=== PATIENT | female | born 1995 | race Two or more races ===

== ENCOUNTER → 2017-10-10 | Emergency (ER) | payer OTHER ==
--- NOTE | 2017-10-10 18:28 | Emergency Room Report ---
History of Present Illness General Chief Complaint: To Be Triaged Medical Decision Making Diagnostic Impression: Primary Impression: Patient left without being seen ER Course Patient left without being seen Status: unchanged Disposition: LEFT W/OUT BEING SEEN Condition: Unknown Referrals: [facility],REFERRING (PCP) Leroy Olson MD October 10, 2017 18:28
== END | disposition left against medical advice (07) ==
LOC: EMR 16:46
DX: J00 Acute nasopharyngitis [common cold] (principal); Z53.21 Procedure and treatment not carried out due to patient leaving prior to being seen by health care provider

== ENCOUNTER 2018-05-12 05:50 | Emergency (ER) | payer OTHER ==
[~2018-05-12] VITALS: Ht 162.6 cm; Wt 63.0 kg
[2018-05-12] MEDS ORDERED: NKM (06:00)
[2018-05-12 06:10] VITALS: BP 124/73
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
[2018-05-12] MEDS ORDERED: METRONIDAZOLE500 MG ORAL (06:29)
[2018-05-12] MEDS ORDERED: MONISTAT 744 GM VG (06:29)
[2018-05-12] MEDS ORDERED: FLUCONAZOLE150 MG ORAL (06:29)
[2018-05-12 06:35] VITALS: BP 124/73
== END 2018-05-12 06:38 | disposition home or self-care (01) ==
LOC: EMR 06:22
DX: N76.0 Acute vaginitis (principal)
CPT/HCPCS: 99282

== ENCOUNTER 2018-10-12 06:14 | Emergency (ER) | payer OTHER ==
[~2018-10-12] VITALS: Ht 162.6 cm; Wt 62.1 kg
[~2018-10-12 06:14] MED LIST: FLUCONAZOLE150 MG ORAL; METRONIDAZOLE500 MG ORAL; MONISTAT 744 GM VG; NKM
[2018-10-12 06:54] VITALS: BP 127/79
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
[2018-10-12 07:42] LABS: APPEARANCE,URINE CLEAR; BILIRUBIN, URINE NEGATIVE (NEGATIVE); GLUCOSE, URINE (UA) NEGATIVE (NEGATIVE); KETONES,URINE 1+ (NEGATIVE); LEUKOCYTE ESTERASE ,URINE 2+ (NEGATIVE); NITRITE,URINE NEGATIVE (NEGATIVE); PH,URINE 5 (4.5-8.0); PROTEIN,URINE 2+ (NEGATIVE); UROBILINOGEN,URINE 1 MG/DL (0.0-1.0)
[2018-10-12 07:49] LABS: COLOR,URINE YELLOW
[2018-10-12] MEDS ORDERED: Lidocaine 1% MPF 10mg/ml 5ml INJ ONE (08:00)
[2018-10-12] MEDS ORDERED: Azithromycin 250mg tab ORAL ONE (08:00)
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
[2018-10-12] MEDS ORDERED: IBUPROFEN600 MG ORAL (08:30)
[2018-10-12] MEDS ORDERED: NITROFURANTOIN100 M2 ORAL (08:30)
[2018-10-12 08:36] VITALS: BP 124/78
--- NOTE | 2018-10-12 08:44 | NUR ---
ER DISCHARGE NOTE:pt. recevieved antibiotics treatment Patient is cleared to be discharged per ERMD, pt is aox4, on room air, with stable vital signs. pt was given dc and prescription instructions, pt was able to verbalize understanding, pt is able to ambulate with steady gait. pt took all belongings.
== END 2018-10-12 08:36 | disposition home or self-care (01) ==
LOC: EMR 07:09
DX: J02.9 Acute pharyngitis, unspecified (principal); N39.0 Urinary tract infection, site not specified
CPT/HCPCS: 81001; 81025; 96372; 96374; 99284; J0696; Q0144

== ENCOUNTER 2018-10-22 13:58 | Emergency (ER) | payer OTHER ==
[~2018-10-22] VITALS: Ht 162.6 cm; Wt 59.9 kg
[~2018-10-22 13:58] MED LIST changes: +IBUPROFEN600 MG ORAL; +NITROFURANTOIN100 M2 ORAL
[2018-10-22 14:21] VITALS: BP 127/77
--- NOTE | 2018-10-22 14:24 | NUR ---
ED Nurse Note: pt came in for cough and congestion for 1 week awaiting ermd eval .
--- NOTE | 2018-10-22 14:54 | Emergency Room Report ---
History of Present Illness General Chief Complaint: Upper Respiratory Illness Present Illness HPI 23 YO Female presents to the ED c/o 11/13 in severity painful cough with mucus stuck in throat x 1 week. Denies fevers or chills. Denies sore throat, ear pain , high fevers, lethargy, neck pain/stiffness, irritability, photophobia dehydration, N/V/D. Denies Cp, Palpitations, LOC, AMS, seizures, paresthesias, or changes in Hearing or vision, no Sudden severe PLEITEZ. Denies hx of smoking, asthma or COPD. Allergies: Coded Allergies: No Known Allergies (Unverified , 05/12/18) Patient History Past Medical History: see triage record Past Surgical History: none Pertinent Family History: none Last Menstrual Period: 5-3 Now: No Reviewed Nursing Documentation: PMH: Agreed; PSxH: Agreed Nursing Documentation-PMH Past Medical History: No Stated History Review of Systems All Other Systems: negative except mentioned in HPI Physical Exam Vital Signs Date Time Temp Pulse Resp B/P (MAP) Pulse Ox O2 Delivery O2 Flow Rate FiO2 10/22/18 14:12 98.6 91 20 97 Room Air 10/22/18 14:21 127/77 Sp02 EP Interpretation: reviewed, normal General Appearance: no apparent distress, alert, GCS 15, non-toxic Head: normocephalic, atraumatic Eyes: bilateral eye normal inspection, bilateral eye PERRL ENT: hearing grossly normal, normal voice, TMs + canals normal, uvula midline, moist mucus membranes, nasal congestion, pharyngeal erythema Neck: full range of motion Respiratory: chest non-tender, lungs clear, normal breath sounds, no respiratory distress, no accessory muscle use, speaking full sentences, wheezing Cardiovascular #1: regular rate, rhythm Gastrointestinal: non tender, soft Musculoskeletal: gait/station normal, normal range of motion, non-tender Neurologic: alert, oriented x3, responsive, motor strength/tone normal, sensory intact, speech normal, grossly normal Psychiatric: judgement/insight normal Skin: normal color, no rash, warm/dry, well hydrated Lymphatic: no adenopathy Medical Decision Making PA Attestation Dr. lee is my supervising Physician whom patient management has been discussed with. Diagnostic Impression: Primary Impression: Bronchitis ER Course 23 YO Female presents to the ED c/o 11/13 in severity painful cough with mucus stuck in throat x 1 week. Denies fevers or chills. Denies sore throat, ear pain , high fevers, lethargy, neck pain/stiffness, irritability, photophobia dehydration, N/V/D. Denies Cp, Palpitations, LOC, AMS, seizures, paresthesias, or changes in Hearing or vision, no Sudden severe PLEITEZ. Denies hx of smoking, asthma or COPD. Ddx considered but are not limited to URI, pneumonia, PE, strep pharyngitis, meningitis. Vital signs: Pt. is afebrile, the remaining VS are WNL H&PE are most consistent with bronchitis URI- no meningeal signs, oropharynx is not involved, no evidence of bacterial infection at this time. ORDERS: none required at this time, the diagnosis is clinical ED INTERVENTIONS: None required at this time. --PT. EDUCATION: Discussed antibiotic resistance with inappropriate prescribing of antibiotics for viral illnesses. Discussed signs and symptoms to indicate viral illness versus bacterial illness. DISCHARGE: At this time pt. is stable for d/c to home. Will provide printed patient care instructions, and any necessary prescriptions. Care plan and follow up instructions have been discussed with the patient prior to discharge. Last Vital Signs Date Time Temp Pulse Resp B/P (MAP) Pulse Ox O2 Delivery O2 Flow Rate FiO2 10/22/18 14:21 98.6 20 127/77 97 Room Air 10/22/18 14:21 91 Disposition: HOME, SELF-CARE Condition: Stable Scripts Albuterol Sulfate* (ALBUTEROL SULFATE MDI*) 8.5 Gm Hfa.aer.ad 2 PUFF INH Q4H, #1 INH 0 Refills Prov: Kavya Oswald 10/22/18 Guaifenesin (Guaifenesin) 1,200 Mg Tab.er.12h 1200 MG PO Q12HR for 10 Days, #20 TAB Prov: Kavya Oswald 10/22/18 Codeine/Promethazine Hcl* (PROMETHAZINE-CODEINE SYRUP*) 118 Ml Syrup 5 ML ORAL Q6H PRN for For Cough, #120 ML 0 Refills Prov: Kavya Oswald 10/22/18 Departure Forms: Return to Work Return to Work Date: October 24, 2018 Work Restrictions: None Return to Full Activity: October 24, 2018 Patient Instructions: Acute Bronchitis, [id number] Additional Instructions: Take medications as directed. Follow up with a Primary Care Provider in 3-5 days, even if your symptoms have resolved. --Please review list of primary care clinics, if you do not already have a primary care provider Return sooner to ED if new symptoms occur, or current symptoms become worse. Do not drink alcohol, drive, or operate heavy machinery while taking Cough Syrup as this may cause drowsiness. - Please note that this Emergency Department Report was dictated using Amimonemergency management director technology software, occasionally this can lead to erroneous entry secondary to interpretation by the dictation equipment. Kavya Oswald October 22, 2018 14:54
[2018-10-22] MEDS ORDERED: ALBUTEROL SULF8.5 GM INH (14:55)
[2018-10-22] MEDS ORDERED: GUAIFENESIN1200 MG PO (14:55)
[2018-10-22] MEDS ORDERED: PROMETHAZINE-C118 M1 ORAL (14:55)
[2018-10-22 15:06] VITALS: BP 127/77
--- NOTE | 2018-10-22 15:06 | NUR ---
ER DISCHARGE NOTE: Patient is cleared to be discharged per BEEB ARMAS, pt is aox4, on room air, with stable vital signs. pt was given dc and prescription instructions, pt was able to verbalize understanding, pt id band removed without complications. pt is able to ambulate with steady gait. pt took all belongings.
== END 2018-10-22 15:56 | disposition home or self-care (01) ==
LOC: EMR 14:45
DX: J20.9 Acute bronchitis, unspecified (principal)
CPT/HCPCS: 99282

== ENCOUNTER 2019-07-21 10:29 | Emergency (ER) | payer OTHER ==
[~2019-07-21] VITALS: Ht 162.6 cm; Wt 62.6 kg
[~2019-07-21 10:29] MED LIST changes: +ALBUTEROL SULF8.5 GM INH; +GUAIFENESIN1200 MG PO; +PROMETHAZINE-C118 M1 ORAL
--- NOTE | 2019-07-21 10:37 | NUR ---
ED Nurse Note: Pt walked into ED w/ c/o sore throat for 1 day. Pt has no cough, congestion, nausea, or vomiting. Pt is alert and orientedx4, ambulatory. Pt Pt has and son present. Pt lungs are clear bilaterally to auscultation.
[2019-07-21 10:41] VITALS: BP 115/74
--- NOTE | 2019-07-21 10:55 | Emergency Room Report ---
History of Present Illness General Chief Complaint: Sore Throat Source: Patient Present Illness HPI Patient started getting sick today. Her child has strep throat. She has a sore throat. She denies any fevers or chills. No fevers, chills, chest pain, palpitations, nausea, vomiting, diarrhea, dysuria , abdominal pain, shortness of breath, joint pain, rashes, headache. Last menstrual period was normal. She is certain she is now at this time. Allergies: Coded Allergies: No Known Allergies (Unverified , 05/12/18) Patient History Past Medical History: see triage record Social History: Denies: smoking Social History Narrative Cares for her child Reviewed Nursing Documentation: PMH: Agreed; PSxH: Agreed Nursing Documentation-PMH Past Medical History: No Stated History Review of Systems All Other Systems: negative except mentioned in HPI Physical Exam Vital Signs Date Time Temp Pulse Resp B/P (MAP) Pulse Ox O2 Delivery O2 Flow Rate FiO2 07/21/19 10:31 98.1 69 18 109/68 (82) 99 Room Air Sp02 EP Interpretation: reviewed, normal General Appearance: well appearing, no apparent distress, GCS 15, non-toxic Head: normocephalic Eyes: bilateral eye normal inspection, bilateral eye PERRL ENT: moist mucus membranes, pharyngeal erythema Neck: full range of motion, supple Respiratory: chest non-tender, lungs clear Cardiovascular #1: regular rate, rhythm Gastrointestinal: normal inspection Musculoskeletal: gait/station normal Neurologic: alert, grossly normal Psychiatric: mood/affect normal Skin: no rash, warm/dry Medical Decision Making Diagnostic Impression: Primary Impression: Strep throat ER Course Mother of a child with strep throat presents with sore throat that began this morning. Differential includes viral pharyngitis versus strep pharyngitis. The fact that the child has strep makes her likely to have strep also. Antibiotics are indicated. Amoxicillin initially ordered. When presented with this patient states she gets itching with amoxicillin. This was changed to azithromycin. Patient not toxic and declining pain medication. Tolerating oral intake without difficulty. Patient stable for outpatient observation and treatment. Last Vital Signs Date Time Temp Pulse Resp B/P (MAP) Pulse Ox O2 Delivery O2 Flow Rate FiO2 07/21/19 11:45 98.0 82 18 110/72 99 Room Air Status: improved Disposition: HOME, SELF-CARE Condition: Improved Scripts Azithromycin* (ZITHROMAX*) 250 Mg Tablet 250 MG ORAL DAILY, #4 TAB Prov: David Ibrahim MD 07/21/19 Ibuprofen* (MOTRIN*) 600 Mg Tablet 600 MG ORAL Q6HR for For Pain, #16 TAB 0 Refills Prov: David Ibrahim MD 07/21/19 David Ibrahim MD Jul 21, 2019 10:55
[2019-07-21] MEDS ORDERED: AMOXICILLIN500 MG ORAL ×2 (11:03)
[2019-07-21] MEDS ORDERED: IBUPROFEN600 MG ORAL (11:03)
[2019-07-21] MEDS ORDERED: ZITHROMAX250 MG ORAL (11:15)
[2019-07-21] MEDS ORDERED: Azithromycin 250mg tab ORAL ONE (11:15)
[2019-07-21 11:45] VITALS: BP 110/72
--- NOTE | 2019-07-21 11:45 | NUR ---
ER DISCHARGE NOTE: Patient is cleared to be discharged per ERMD, pt is aox4, on room air, with stable vital signs. pt was given dc and prescription instructions, pt was able to verbalize understanding, pt id band removed. pt is able to ambulate with steady gait. pt took all belongings.
== END 2019-07-21 11:45 | disposition home or self-care (01) ==
LOC: EMR 11:40
DX: J02.0 Streptococcal pharyngitis (principal)
CPT/HCPCS: Q0144; Z7502; 99282

== ENCOUNTER 2019-08-30 03:01 | Emergency (ER) | payer OTHER ==
[~2019-08-30] VITALS: Ht 162.6 cm; Wt 62.1 kg
[~2019-08-30 03:01] MED LIST changes: +AMOXICILLIN500 MG ORAL; +ZITHROMAX250 MG ORAL
[2019-08-30 03:17] VITALS: BP 138/79
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
--- NOTE | 2019-08-30 03:30 | NUR ---
ED Nurse Note: ERMD at bedside for pelvic exam
[2019-08-30] MEDS ORDERED: ZITHROMAX250 MG ORAL (03:39)
[2019-08-30] MEDS ORDERED: IBUPROFEN400 MG ORAL (03:41)
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
--- NOTE | 2019-08-30 03:47 | NUR ---
ED Nurse Note: UA sent to lab
[2019-08-30 03:53] VITALS: BP 138/79
--- NOTE | 2019-08-30 03:53 | NUR ---
ER DISCHARGE NOTE: Patient is cleared to be discharged home per ERMD, pt is aox4, on room air, with stable vital signs. pt was given dc and prescription instructions, pt was able to verbalize understanding, pt id band removed. pt is able to ambulate with steady gait. pt took all belongings.
== END 2019-08-30 03:53 | disposition home or self-care (01) ==
LOC: EMR 03:26
DX: J02.9 Acute pharyngitis, unspecified (principal); S30.814A Abrasion of vagina and vulva, initial encounter; X58.XXXA Exposure to other specified factors, initial encounter; Y92.9 Unspecified place or not applicable; J45.909 Unspecified asthma, uncomplicated; Z88.0 Allergy status to penicillin
CPT/HCPCS: 81025; Z7502; 99282

== ENCOUNTER 2020-04-27 15:52 | Emergency (ER) | payer OTHER ==
[~2020-04-27] VITALS: Ht 162.6 cm; Wt 62.1 kg
[~2020-04-27 15:52] MED LIST changes: +IBUPROFEN400 MG ORAL
[2020-04-27 16:00] VITALS: BP 111/66
--- NOTE | 2020-04-27 16:00 | NUR ---
ED Nurse Note: Patient walked in to ED from home c/o loss of smell and headache x few days. Pt also c/o back pain. AAOx4, verbally responsive. No SOB, on room air. Afebrile. ERPA at bedside.
--- NOTE | 2020-04-27 16:29 | NUR ---
ED Nurse Note: Xray at bedside.
--- NOTE | 2020-04-27 16:39 | Diagnostic Imaging Report ---
EXAM: XR Chest, 1 View CLINICAL HISTORY: SOB TECHNIQUE: Frontal view of the chest. COMPARISON: No relevant prior studies available. FINDINGS: Lungs: Unremarkable. No consolidation. Pleural space: Unremarkable. No pneumothorax. Heart: Unremarkable. No cardiomegaly. Mediastinum: Unremarkable. Bones/joints: Unremarkable. IMPRESSION: Normal chest x-ray.
--- NOTE | 2020-04-27 16:54 | Emergency Room Report ---
History of Present Illness General Chief Complaint: General Complaint Source: Patient Present Illness HPI 25-year-old female with no signal past medical history other than asthma here complaining of 1 day of sudden onset of loss of smell. Patient reports that she was exposed to her friend who is positive for Covid 2 days ago. Denies cough, congestion, body aches, chest pain, shortness of breath, headache and dizziness. Reports that she also started her menstruation this morning and is complaining of a 10 out of 10 low back pain. Denies any fall or injury. Has taken multiple ibuprofen without relief. Patient also reports that she was under the impression of this urgent care and want to get tested for Covid. Patient is aware that we do not routinely test for Covid as outpatient. Patient denies . Allergies: Coded Allergies: No Known Allergies (Unverified , 04/27/20) COVID-19 Screening Contact w/high risk pt: No Recent Travel to affected area: No Experienced COVID-19 symptoms?: Yes COVID-19 Testing performed [place]: No Patient History Past Medical History: see triage record Past Surgical History: none Pertinent Family History: none Last Menstrual Period: currently on her period Now: No Immunizations: UTD Reviewed Nursing Documentation: PMH: Agreed; PSxH: Agreed Nursing Documentation-PMH Past Medical History: No History, Except For Hx Asthma: Yes Review of Systems All Other Systems: negative except mentioned in HPI Physical Exam Vital Signs Date Time Temp Pulse Resp B/P (MAP) Pulse Ox O2 Delivery O2 Flow Rate FiO2 04/27/20 15:59 98.1 80 16 111/66 (81) 98 Room Air Sp02 EP Interpretation: reviewed, normal General Appearance: no apparent distress, alert, GCS 15, non-toxic Head: normocephalic, atraumatic Eyes: bilateral eye normal inspection, bilateral eye PERRL ENT: hearing grossly normal, normal pharynx, no angioedema, normal voice Neck: full range of motion, supple/symm/no masses Respiratory: chest non-tender, lungs clear, normal breath sounds, speaking full sentences Cardiovascular #1: regular rate, rhythm, no edema Cardiovascular #2: 2+ carotid (R), 2+ carotid (L), 2+ radial (R), 2+ radial (L), 2+ dorsalis pedis (R), 2+ dorsalis pedis (L) Gastrointestinal: normal bowel sounds, non tender, soft, non-distended, no guarding, no rebound Rectal: deferred Genitourinary: no CVA tenderness Musculoskeletal: back normal, no calf tenderness, pelvis stable, gait/station normal Neurologic: alert, motor strength/tone normal, oriented x3, sensory intact, responsive, speech normal Psychiatric: judgement/insight normal, memory normal, mood/affect normal, no suicidal/homicidal ideation Skin: no rash Lymphatic: no adenopathy Medical Decision Making PA Attestation All my diagnosis and treatment plans were reviewed ad discussed with my supervising physician Dr. Olson Diagnostic Impression: Primary Impression: Upper respiratory tract infection due to COVID-19 virus Additional Impression: Dysmenorrhea ER Course 25-year-old female with no signal past medical history other than asthma here complaining of 1 day of sudden onset of loss of smell. Patient reports that she was exposed to her friend who is positive for Covid 2 days ago. Denies cough, congestion, body aches, chest pain, shortness of breath, headache and dizziness. Reports that she also started her menstruation this morning and is complaining of a 10 out of 10 low back pain. Denies any fall or injury. Has taken multiple ibuprofen without relief. Patient also reports that she was under the impression of this urgent care and want to get tested for Covid. Patient is aware that we do not routinely test for Covid as outpatient. Patient denies . Ddx considered but are not limited to: strep pharyngitis, URI, tonsillitis, peritonsillar abscess, influneza, coronavirus Vital signs: are WNL, pt. is afebrile H&PE are most consistent with: Upper respiratory infection most likely secondary to COVID-19, dysmenorrhea ORDERS: Ibuprofen 800, Robaxin patient reported that needs some muscle relaxants as ibuprofen alone will not help her ED INTERVENTIONS: Toradol DISCHARGE: At this time pt. is stable for d/c to home. Will provide printed patient care instructions, and any necessary prescriptions. Care plan and follow up instructions have been discussed with the patient prior to discharge. Take medication as directed, follow primary care provider, self isolate for at least 2 weeks, wait until 3 days after onset of symptoms and get tested for Covid, if worsening symptoms return to the emergency room Chest X-Ray Diagnostic Results Chest X-Ray Diagnostic Results : Chest X-Ray Ordered: Yes # of Views/Limited/Complete: 1 View Indication: Other EP Interpretation: Yes ASHUTOSH Xray: Interpretation reviewed, by supervising MD, and agrees with findings. Interpretation: no consolidation, no effusion, no pneumothorax Impression: No acute disease Electronically Signed by: Amelie BOYKIN Scribgreg Text COMPARISON: No relevant prior studies available. FINDINGS: Lungs: Unremarkable. No consolidation. Pleural space: Unremarkable. No pneumothorax. Heart: Unremarkable. No cardiomegaly. Mediastinum: Unremarkable. Bones/joints: Unremarkable. IMPRESSION: Normal chest x-ray. Last Vital Signs Date Time Temp Pulse Resp B/P (MAP) Pulse Ox O2 Delivery O2 Flow Rate FiO2 04/27/20 16:00 98.1 80 16 111/66 98 Room Air Disposition: HOME, SELF-CARE Condition: Stable Scripts Methocarbamol* (ROBAXIN-500*) 500 Mg Tablet 500 MG ORAL TID PRN for For Pain, #15 TAB 0 Refills Prov: Amelie Mason 04/27/20 Ibuprofen (Ibu) 800 Mg Tablet 800 MG PO TID, #30 TAB Prov: Amelie Mason 04/27/20 Referrals: NON PHYSICIAN (PCP) Patient Instructions: Dysmenorrhea, [id number], Upper Respiratory Infection, Adult, [id number] Additional Instructions: Take medication as directed, self isolate for at least 14 days, get Covid tested in 3 days after the onset of your symptoms. Self isolate from your son and mother at home. Wear a mask around them. Increase oral hydration, if worsening symptom return to the emergency room Amelie Mason Apr 27, 2020 16:54
[2020-04-27] MEDS ORDERED: IBU800 MG PO (16:55)
[2020-04-27] MEDS ORDERED: ROBAXIN-500MG ORAL (16:55)
[2020-04-27] MEDS ORDERED: Ketorolac 30mg Inj IM ONE (17:00)
[2020-04-27 17:02] VITALS: BP 111/66
--- NOTE | 2020-04-27 17:02 | NUR ---
ED Nurse Note: Pt cleared by ERPA for discharge. DC instructions/prescription was given and explained to pt and verbalized understanding of teachings. All medical deviecs such as ID band removed. Pt is AAO x4, ambulatory and left with all personal belongings.
== END 2020-04-27 17:02 | disposition home or self-care (01) ==
LOC: EMR 16:38
DX: J06.9 Acute upper respiratory infection, unspecified (principal); N94.6 Dysmenorrhea, unspecified
CPT/HCPCS: 71045; 96372; J1885; Z7502; 99283

== ENCOUNTER 2020-06-15 15:22 | Emergency (ER) | payer BC, OTHER ==
[~2020-06-15] VITALS: Ht 162.6 cm; Wt 62.1 kg
[~2020-06-15 15:22] MED LIST changes: +IBU800 MG PO; +ROBAXIN-500MG ORAL
--- NOTE | 2020-06-15 15:43 | NUR ---
ED Nurse Note:pt. came from home with c/o dry cough for 3 days, no fever, placed in isolation
[2020-06-15 15:46] VITALS: BP 124/63
--- NOTE | 2020-06-15 16:01 | Emergency Room Report ---
History of Present Illness General Chief Complaint: Upper Respiratory Illness Source: Patient Present Illness HPI 25 YO female presents to the ED c/o productive cough x 3 days. Denies fevers or chills. Pt. reports hx of asthma. She reports nasal congestion and persistent rhinorrhea. Denies PLEITEZ, photophobia, or neck pain / stiffness. Pt. denies or suspicion of . She did not receive this years flu vaccine. She reports hx of bronchitis in the past as well. She denies ill contacts. She reports bouts of coughing and 7/10 in severity pain in the right side of the upper back only when coughing. She denies hemoptysis. She denies wheezing or SOB. Denies Cp or palpitations. Allergies: Coded Allergies: No Known Allergies (Unverified , 04/27/20) COVID-19 Screening Contact w/high risk pt: No Recent Travel to affected area: No Experienced COVID-19 symptoms?: Yes COVID-19 Testing performed RN TRAUMA: Yes COVID-19 Screening: Negative COVID-19 COVID-19 Testing Source: nasal Patient History Past Medical History: see triage record Past Surgical History: none Pertinent Family History: none Now: No Reviewed Nursing Documentation: PMH: Agreed; PSxH: Agreed Nursing Documentation-PMH Past Medical History: No History, Except For Hx Asthma: Yes Review of Systems All Other Systems: negative except mentioned in HPI Physical Exam Vital Signs Date Time Temp Pulse Resp B/P (MAP) Pulse Ox O2 Delivery O2 Flow Rate FiO2 06/15/20 15:39 98.8 75 17 124/63 (83) 100 Room Air Sp02 EP Interpretation: reviewed, normal General Appearance: no apparent distress, alert, GCS 15, non-toxic Head: normocephalic, atraumatic Eyes: bilateral eye normal inspection, bilateral eye PERRL ENT: hearing grossly normal, normal pharynx, normal voice, uvula midline, moist mucus membranes, nasal congestion - bilaterally with moderate clear rhinorrhea Neck: full range of motion, no meningismus, no bony tend Respiratory: lungs clear, normal breath sounds, no respiratory distress, no accessory muscle use, no wheezing, speaking full sentences, other - bronchitis like cough witnessed x 2 Cardiovascular #1: regular rate, rhythm, normal capillary refill Musculoskeletal: normal range of motion, gait/station normal, tender - TTp in the right rhomboid area Neurologic: alert, motor strength/tone normal, oriented x3, sensory intact, responsive, speech normal Psychiatric: judgement/insight normal Skin: no rash, normal color Lymphatic: no adenopathy Medical Decision Making PA Attestation Dr. Carnes is my supervising Physician whom patient management has been discussed with. Diagnostic Impression: Primary Impression: Upper respiratory infection Qualified Codes: J06.9 - Acute upper respiratory infection, unspecified ER Course 25 YO female presents to the ED c/o productive cough x 3 days. Denies fevers or chills. Pt. reports hx of asthma. She reports nasal congestion and persistent rhinorrhea. Denies PLEITEZ, photophobia, or neck pain / stiffness. Pt. denies or suspicion of . She did not receive this years flu vaccine. She reports hx of bronchitis in the past as well. She denies ill contacts. She reports bouts of coughing and 7/10 in severity pain in the right side of the upper back only when coughing. She denies hemoptysis. She denies wheezing or SOB. Denies Cp or palpitations. Ddx considered but are not limited to URI, pneumonia, PE, strep pharyngitis, meningitis, COVID-19 Vital signs: Pt. is afebrile, the remaining VS are WNL H&PE are most consistent with Viral URI- no meningeal signs, oropharynx is not involved, no evidence of bacterial infection at this time. She is nontoxic in appearance and in no acute distress/respiratory distress. No obvious increase in respiratory effort. ORDERS: none required at this time, the diagnosis is clinical ED INTERVENTIONS: None required at this time. --PT. EDUCATION: Discussed antibiotic resistance with inappropriate prescribing of antibiotics for viral illnesses. Discussed signs and symptoms to indicate viral illness versus bacterial illness. This patient was evaluated in the context of the global COVID-19 pandemic, which necessitated consideration that the patient might be at risk for infection with the SARS-COV-2 virus that causes COVID-19. Institutional protocols and algorithms that pertaining to the evaluation of patients at risk for COVID-19 are in a state of rapid change based on information released by multiple regulatory bodies including the CDC and federal and state organizations. These policies and algorithms were followed during the patient's care in the emergency department DISCHARGE: At this time pt. is stable for d/c to home. Will provide printed patient care instructions, and any necessary prescriptions. Care plan and follow up instructions have been discussed with the patient prior to discharge. Last Vital Signs Date Time Temp Pulse Resp B/P (MAP) Pulse Ox O2 Delivery O2 Flow Rate FiO2 06/15/20 15:46 75 17 Room Air 06/15/20 15:46 98.8 124/63 100 Disposition: HOME, SELF-CARE Condition: Stable Referrals: [facility],REFERRING (PCP) Patient Instructions: Cough, Adult, [id number], Upper Respiratory Infection, Adult, [id number] Additional Instructions: Take medications as directed. Follow up with a Primary Care Provider in 3-5 days, even if your symptoms have resolved. Return sooner to ED if new symptoms occur, or current symptoms become worse. Do not drink alcohol, drive, or operate heavy machinery while taking Cough Syrup as this may cause drowsiness. - Please note that this Emergency Department Report was dictated using [employer] analyst technology software, occasionally this can lead to erroneous entry secondary to interpretation by the dictation equipment. Kavya Oswald Jun 15, 2020 16:01
[2020-06-15] MEDS ORDERED: NEXAFED30 MG ORAL (16:06)
[2020-06-15] MEDS ORDERED: MUCINEX1200 MG PO (16:06)
[2020-06-15] MEDS ORDERED: PROMETHAZINE-C118 M1 ORAL (16:06)
[2020-06-15 16:23] VITALS: BP 124/63
== END 2020-06-15 16:24 | disposition home or self-care (01) ==
LOC: EMR 15:44
DX: J06.9 Acute upper respiratory infection, unspecified (principal); J45.909 Unspecified asthma, uncomplicated
CPT/HCPCS: 99282